=== PATIENT | female | born 1970 | race Caucasian/White ===

== ENCOUNTER 2017-08-03 16:21 | Emergency (ER) | payer OTHER ==
[~2017-08-03] VITALS: Ht 157.5 cm; Wt 87.0 kg
[2017-08-03 17:00] VITALS: BP 191/101; PULSE 95; RESP 16; TEMP 98.5; O2SAT 97
--- NOTE | 2017-08-03 17:18 | PD ---
HPI Chief Complaint: Headache Time Seen by Provider: 17:00 Travel History International Travel<30 days: No Contact w/Intl Traveler<30days: No Traveled to known affect area: No History of Present Illness HPI The patient was seen and examined in the presence of the nurse. This patient complains of headache. She has a diffuse headache. No injury or thunderclap onset or headache. She has history of hypertension and takes amlodipine 10 mg daily. She checked her blood pressure today and it was quite high. Upon arrival 190/101. Symptoms severity is moderate. No alleviating factors. Symptoms exacerbated by her elevated blood pressures. [facility] Social History Alcohol Use: No Tobacco Use: No Substance Use: No Allergies-Medications (Allergen,Severity, Reaction): Coded Allergies: Penicillins (Verified Allergy, Unknown, 08/03/17) pregabalin (Verified Allergy, Unknown, 08/03/17) Review of Systems General / Constitutional: No: Fever Eyes: No: Visual changes HENT: Positive: Headaches Cardiovascular: No: Chest Pain or Discomfort Respiratory: No: Shortness of Breath Gastrointestinal: No: Abdominal Pain Genitourinary: No: Dysuria Musculoskeletal: No: Pain Skin: No Rash Neurologic: Positive: Headache, No: Weakness Psychiatric: No: Depression Endocrine: No: Polydipsia Hematologic/Lymphatic: No: Easy Bruising Physical Exam Narrative GENERAL: Well-nourished, well-developed patient with headache . SKIN: Focused skin assessment reveals no rash and nodules. Skin is Warm and dry. HEAD: Atraumatic. Normocephalic. EYES: Pupils equal and round. No scleral icterus. No injection or drainage. ENT: No nasal bleeding or discharge. Mucous membranes pink and moist. NECK: Trachea midline. No JVD. No meningeal signs CARDIOVASCULAR: Regular rate and rhythm. No murmur appreciated. RESPIRATORY: No accessory muscle use. Clear to auscultation. Breath sounds equal bilaterally. GASTROINTESTINAL: Abdomen soft, non-tender, nondistended. Hepatic and splenic margins not palpable. MUSCULOSKELETAL: No obvious deformities. No clubbing. No cyanosis. No edema. NEUROLOGICAL: Awake and alert. No obvious cranial nerve deficits. Motor grossly within normal limits. Normal speech. PSYCHIATRIC: Appropriate mood and affect; insight and judgment normal. Data Data Last Documented VS Vital Signs Date Time Temp Pulse Resp B/P (MAP) Pulse Ox O2 Delivery O2 Flow Rate FiO2 3//18 18:08 86 16 185/92 (123) 98 Room Air 08/03/17 17:[address] Brain W/O Iv Contrast(Rout) (08/03/17 ) Ketorolac Inj (Toradol Inj) (08/03/17 18:30) Acetaminophen (Tylenol) (08/03/17 18:30) MDM Medical Decision Making Medical Screen Exam Complete: Yes Emergency Medical Condition: Yes Medical Record Reviewed: Yes Differential Diagnosis Differential diagnosis includes migraine, tension headache, cluster headache, meningitis. Narrative Course I have reviewed the patient's electronic medical record. 1700: Patient is neurologically intact. I've ordered brain CT I don't see evidence of stroke and this is not consistent with subarachnoid hemorrhage Will reassess blood pressure and treat if needed. 1718: Blood pressure 164/87 I offered her pain medication but she declines 1840: Brain CT is negative 1855: I have rechecked the patient. She looks clinically well. I gave her Toradol and Tylenol for pain relief. She did not want anything sedating I suspect that she had a hypertensive spike which caused or contributed to her headache. She will check and record her blood pressure daily and follow up with primary care Diagnosis Primary Impression: Headache Qualified Codes: R51 - Headache Additional Impression: Accelerated hypertension Additional Instructions: The patient was advised to follow up with their physician and return if they worsen. Check and record blood pressure daily Med/Other Pt SpecificInfo: Other Disposition: 01 DISCHARGE HOME Condition: Stable Julius Son MD Aug 03, 2017 17:18
[2017-08-03 17:38] VITALS: BP 164/87; PULSE 88; RESP 16; O2SAT 97
[2017-08-03 18:08] VITALS: BP 185/92; PULSE 86; RESP 16; O2SAT 98
--- NOTE | 2017-08-03 18:26 | RADRPT ---
EXAM DATE/TIME: 08/03/2017 18:13 [facility] COMPARISON: No previous studies available for comparison. INDICATIONS : Cephalgia. RADIATION DOSE: 59.22 CTDIvol (mGy) MEDICAL HISTORY : Hypertension. Lupus. SURGICAL HISTORY : None. ENCOUNTER: Initial ACUITY: 1 day PAIN SCALE: 9/10 LOCATION: cranial TECHNIQUE: Multiple contiguous axial images were obtained of the head. Using automated exposure control and adj ustment of the mA and/or kV according to patient size, radiation dose was kept as low as reasonably a chievable to obtain optimal diagnostic quality images. DICOM format image data is available electro nically for review and comparison. FINDINGS: CEREBRUM: The ventricles are normal for age. No evidence of midline shift, mass lesion, hemorrhage or acute in farction. No extra-axial fluid collections are seen. POSTERIOR FOSSA: The cerebellum and brainstem are intact. The 4th ventricle is midline. The cerebellopontine angle i s unremarkable. EXTRACRANIAL: The visualized portion of the orbits is intact. SKULL: The calvaria is intact. No evidence of skull fracture. CONCLUSION: No acute disease. Antonio Akers Jr., MD on August 03, 2017 at 18:24 Board Certified Radiologist. This report was verified electronically.
[2017-08-03] MEDS ORDERED: KETOROLAC TROMETHAMINE 60 MG/2 ML (IM) VIAL IM ONE (18:30)
[2017-08-03] MEDS ORDERED: ACETAMINOPHEN 500 MG CPLT PO ONE (18:30)
[2017-08-03 19:22] VITALS: BP 175/99; TEMP 97.8
== END 2017-08-03 19:25 | disposition home or self-care (01) ==
LOC: PHED 16:21
DX: R51 Headache (principal); I10 Essential (primary) hypertension; Z88.0 Allergy status to penicillin; Z88.8 Allergy status to other drugs, medicaments and biological substances
CPT/HCPCS: 70450; 96372; 99283; J1885